=== PATIENT | female | born 1940 | race Caucasian/White ===

== ENCOUNTER 2023-07-16 19:07 | Emergency (ER) | payer MEDICARE, SELFPAY ==
--- NOTE | ~2023-07-16 | US_ITS ---
EXAMINATION: US venous doppler UE DATE: 07/16/2023 20:42 INDICATION: Left upper limb swelling. TECHNIQUE: Grayscale ultrasound images without and with compression and Doppler ultrasound images of the left upper extremity veins were obtained. COMPARISON: None. FINDINGS: The visualized portions of the left internal jugular vein, subclavian vein, axillary vein, brachial v eins, basilic vein, cephalic vein, radial vein, and ulnar vein are patent. IMPRESSION: 1. No deep venous thrombosis. Reviewed, dictated and finalized at location E.
[2023-07-16 19:10] VITALS: BP 124/73; PULSE 95; RESP 16; TEMP 36.6; O2SAT 96
--- NOTE | 2023-07-16 20:11 | ED.EXTPRO ---
HPI - Extremity Problem General Chief complaint: Extremity Problem,Nontraumatic Stated complaint: L arm swelling Time Seen by Provider: 07/16/23 19:57 Source: patient Mode of arrival: ambulatory Limitations: no limitations History of Present Illness HPI Narrative: 82-year-old here for left upper extremity swelling. Noticed a few days ago. Went to urgent care today and had negative x-ray. They wanted to come here for ultrasound. Have no pain, redness. Does not believe she injured it. I Related Data Allergies Allergy/AdvReac Type Severity Reaction Status Date / Time No Known Allergies Allergy Verified 07/16/23 19:08 Review of Systems Review of Systems: All systems reviewed & are unremarkable except as noted in HPI and below Exam Narrative: Constitutional: Generally well appearing, no acute distress Head: Atraumatic, no deformities. Eyes: Pupils equal, round, and reactive to light. Neck: Supple, no tracheal deviation, no JVD. ENMT: Mucous membranes moist Cardiovascular: S1, S2 auscultated. No murmurs, rubs, or gallops. No S3/S4. Normal Distal pulses. Left upper extremity swelling 1+ nonpitting it edema from just above the elbow down to the wrist Respiratory: Lung sounds equal. No wheezes, rales, or rhonchi. Gastrointestinal: Abdomen was soft and non-tender. Non-distended. No rebound or guarding. Genitourinary: Deferred Musculoskeletal: Normal muscle tone and bulk. No obvious deformities or tenderness over extremities. Skin: No rashes. Neurological: Strength 5/5 in extremities. Cranial nerves I-XII grossly intact. Distal sensation intact. Mental Status: Awake, alert and oriented x3. Follows commands Course Vital Signs Vital signs: Vital Signs Temperature 36.6 C 07/16/23 19:10 Pulse Rate 95 07/16/23 19:10 Respiratory Rate 16 07/16/23 19:10 Blood Pressure 124/73 07/16/23 19:10 Pulse Oximetry 96 07/16/23 19:10 Oxygen Delivery Room Air 07/16/23 19:10 Temperature 36.6 C 07/16/23 19:10 Pulse Rate 95 07/16/23 19:10 Respiratory Rate 16 07/16/23 19:10 Blood Pressure 124/73 07/16/23 19:10 Pulse Oximetry 96 07/16/23 19:10 Oxygen Delivery Room Air 07/16/23 19:10 MDM - Extremity (Nontraumatic) MDM Narrative Medical decision making narrative: 82-year-old female presenting for left upper extremity swelling for the last few days. Had x-ray done today which was negative. Concern for DVT. Exam shows 1+ edema nonpitting to left upper extremity up to the just above the elbow. Distal pulses otherwise i he ntact. No signs of infection. No signs of trauma. Concern for DVT primarily. Obtaining DVT ultrasound. Ultrasound is negative. Patient reassured. Discussed that she should follow-up with her PCP in OBGYN to evaluate her breast as it could be some lymphedema from the breast. She agrees and will follow-up. Pt feeling improved and would like to go home at this point. Return precautions were given to the patient include any new or worsening symptoms or development of and not limited to any chest pain, shortness of breath, lightheadedness, abdominal pain, fevers, chills. Patient understands and agrees. They are to follow-up with her PCP. All questions were answered. I reviewed the patient's vital signs, history, allergies, and labs and imaging workup. Discharge Plan Discharge Clinical Impression: Arm edema Patient Disposition: Home, Self-Care Condition: Stable Instructions: Antibiotic Form, Edema (ED) Follow-up/Referrals: Sinai,Kaelyn Veras MD [Primary Care Provider] - Time of Disposition: 21:27
== END 2023-07-16 21:33 | disposition home or self-care (01) ==
PROVIDERS: Emergency Provider Emergency Medicine; PCP Internal Medicine
DX: R60.9 Edema, unspecified (principal)
CPT/HCPCS: 93971; 99284